=== PATIENT | male | born 1995 | race Caucasian/White ===

== ENCOUNTER 2016-09-24 16:20 | Emergency (ER) | payer OTHER ==
[~2016-09-24] VITALS: Ht 188 cm; Wt 100.9 kg
[2016-09-24 16:27] VITALS: BP 122/82; PULSE 91; RESP 15; O2SAT 98
[2016-09-24] MEDS ORDERED: 0.9% Sodium Chloride 1,000 ML IV ONE (17:10)
--- NOTE | 2016-09-24 17:10 | ED.REPORT ---
HPI-Abd Pain M Under 39 Date of Service Sep 24, 2016 ED Provider: Garland Watts PA-C [place] is an otherwise healthy 21-year-old male presenting with chief complaint of nausea vomiting and diarrhea since this night. Associated with headache which is located behind his eyes at the site of his head, crampy abdominal pain. Denies urinary urinary symptoms including hematuria, dysuria, penile discharge. Denies melena, hematochezia, hematemesis. Denies history of unusual food, travel. He has been taking penicillin intermittently for tooth infection. He is concerned about "raw spots" on the tip of his penis. I treated this patient's girlfriend in this department several days ago empirically for gonorrhea/chlamydia. She is present with him, gives consent to discuss this. Results have not returned. Nursing Notes Stated Complaint: NAUSEA, VOMITING, DIZZINESS, DIARRHEA Chief Complaint: General Complaint Nursing Notes Reviewed: Yes Allergies: Coded Allergies: No Known Allergies (Unverified , 09/24/16) Scheduled Ondansetron ODT (Ondansetron ODT) 8 Mg Tab.rapdis 8 MG PO TID General Time Seen by MD: 16:52 Chief Complaint Abdominal pain Past Medical History Past Medical History Denies Review of Systems Review of Systems Note: Negative unless stated otherwise in history of present illness Physical Exam General: Well appearing, well developed, well nourished, no acute distress. Head: Atraumatic, normocephalic. Eyes: No scleral icterus or injection. No discharge. Vision grossly intact. ENT: Voice clear, hearing grossly intact. Respiratory: Regular rate and rhythm. Breath sounds present, clear to auscultation and equal bilaterally. No respiratory distress. No increased work of breathing, speaks in complete sentences. Cardiovascular: Regular rate and rhythm, without murmur, gallop or rub. No pedal edema. Gastrointestinal: Abdomen flat and non-tender without guarding or rebound. Bowel sounds normoactive. Skin: Warm and dry. Genitourinary: Normal circumcised male penis, without lesions noted. Slight redness just proximal to the glans. Negative penile discharge. Testicles descended bilaterally, nontender without masses. Negative hernia. Neurological: Grossly nonfocal. Psychological: Alert and oriented. Speech appropriate, linear and logical. Behavior appropriate. Initial Vital Signs Vital Signs (First) Date Time Temp Pulse Resp B/P Pulse Ox O2 Delivery O2 Flow Rate FiO2 09/24/16 16:27 36.2 91 15 122/82 98 Room Air Initial VS: Vital signs normal Interpretation & Diagnostics Lab Results Interpretation Result Diagram: 09/24/16 1745 09/24/16 1745 Test 09/24/16 17:45 White Blood Count 7.4th/mm3 (3.8-10.1) Red Blood Count 5.35mil/mm3 (4.40-5.80) Hemoglobin 15.1g/dL (13.8-17.2) Hematocrit 43.3% (41.0-50.0) Mean Corpuscular Volume 80.9fL (81-100) Mean Corpuscular Hemoglobin 28.2pg (27.0-35.0) Mean Corpuscular Hemoglobin Concent 34.9% (32.0-37.0) Red Cell Distribution Width 13.2% (12.3-15.4) Platelet Count 206bil/L (150-400) Neutrophils (%) (Auto) 66.8% (40-74) Lymphocytes (%) (Auto) 23.2% (14-46) Monocytes (%) (Auto) 8.1% (4-12) Eosinophils (%) (Auto) 1.5% (0-5) Basophils (%) (Auto) 0.3% (0-3) Urine Color Yellow (YELLOW) Urine Appearance Clear (CLEAR,HAZY) Urine pH 6.5 (5.0-8.0) Urine Specific [place] 1.025 (1.003-1.035) Urine Protein Negativemg/dL (NEG,TRACE) Urine Glucose (UA) Negativemg/dL (NEGATIVE) Urine Ketones Negativemg/dL (NEGATIVE) Urine Occult Blood Negative (NEGATIVE) Urine Nitrite Negative (NEGATIVE) Urine Bilirubin Negative (NEGATIVE) Urine Urobilinogen 1.0mg/dL (NORMAL) Urine Leukocyte Esterase Negative (NEGATIVE) Urine RBC 0-2/hpf (0-2) Urine WBC 0-5/hpf (0-5) Urine Epithelial Cells Few/hpf (NONE-MOD) Urine Crystals None seen (NONE SEEN) Urine Bacteria Few/hpf (NONE-FEW) Urine Hyaline Casts None/lpf (NONE) Urine Granular Casts None seen (NONE SEEN) Urine Waxy Casts None seen (NONE SEEN) Urine Red Blood Cell Casts None seen (NONE SEEN) Urine White Blood Cell Casts None seen (NONE SEEN) Urine Mucus None seen (None Seen) Urine Trichomonas None seen (NONE SEEN) Urine Yeast None (NONE SEEN) Urinalysis Comment None Urine Culture Reflexed Not indicated Sodium Level 138mEq/L (134-144) Potassium Level 4.2mEq/L (3.5-5.2) Chloride Level 103mEq/L (97-108) Carbon Dioxide Level 23mmol/L (18-29) Blood Urea Nitrogen 14mg/dL (6-20) Creatinine 0.74mg/dL (0.76-1.27) Estimat Glomerular Filtration Rate 141mL/min (>59) Glucose Level 93mg/dL (60-99) Calcium Level 9.0mg/dL (8.5-10.1) Total Bilirubin 0.4mg/dL (0.0-1.2) Aspartate Amino Transf (AST/SGOT) 18U/L (0-50) Alanine Aminotransferase (ALT/SGPT) 31U/L (0-44) Alkaline Phosphatase 78U/L (25-150) Total Protein 7.0g/dL (6.4-8.4) Albumin 4.3g/dL (3.4-5.0) Chlamydia trachomatis DNA (MARIE) Negative (Negative) Neisseria gonorrhoeae DNA (MARIE) Negative (Negative) Re-Eval/Medical Decision Med Decision/Clinical Course I discussed this case with Dr. Stewart. Otherwise healthy 19-year-old male presents with chief complaint nausea, vomiting, diarrhea since last night associated with headache. Denies fever, melena, hematochezia, hematemesis, travel, unusual food. Admit intermittent penicillin use for tooth infection. Also concerned about STI, his girlfriend treated by me in this department several days ago empirically for GC chlamydia. Test results are not returned. Denies urinary symptoms such as hematuria, dysuria, discharge. Concerned about "raw spots" on the tip of his penis. Physical examination reveals a generally well appearing patient, nontender abdomen. Genitourinary exam is normal with slight redness just proximal to the glans. Negative tenderness or discharge. I believe this is most likely a straightforward gastroenteritis. Plan to start IV, 1 NS, ondansetron. Check CBC, CMP. Considered appendicitis, inflammatory or bacterial colitis, C. difficile, obstruction. Also considering the possibility of GC/Chlamydia which would appear to be asymptomatic as there is no discharge or evidence of epididymitis. Areas of irritation noted on penis are unremarkable, with slight redness and crusting. I see no vesicles which I might test for herpes, no ulcers to suggest syphilis. I discussed the case with Dr. Stewart who met with and examine the patient. He is similarly reassured. Treat empirically for GC chlamydia with azithromycin and ceftriaxone, send urine NAAT. CBC, CMP are unremarkable. Patient responds well to hydration and antiemetics. Passes His by mouth challenge, feels improved and wishes to go home. Provided primary care referral, advised regarding strict emergency return precautions. The patient verbalizes understanding of and consented to plan. Patient Discharge & Departure Primary Impression: Viral gastroenteritis Disposition: Home Discharge Condition All VS Reviewed: Yes Condition: Stable Patient Instructions: Gastroenteritis (ED) Additional Instructions: Evaluation in the emergency department for nausea vomiting and diarrhea includes history, physical examination and lab tests all of which are reassuring that this is unlikely to be caused by an immediately dangerous condition. I think this most likely is a viral gastroenteritis, which should improve on its own in the next few days. I believe you are stable and safe to go home. I will send you home with a prescription for ondansetron (Zofran) to help with the nausea. They hydrated by drinking small amounts of fluid throughout the day. Eat small amounts of bland food as tolerated. (Banana, rice, applesauce and toast are all excellent choices) We have also discussed the possibility of a sexually transmitted infection such as gonorrhea or chlamydia. We are testing for this but we have also gone ahead and treated you with antibiotics. One week from now, you can assume that the infection is gone. Do not have unprotected sex before then. I have given her a referral for primary care provider. Please contact them to establish care if you have any further concerns. Return to the emergency department for any new or worsening symptoms including blood in your stool, increasing pain or fever Referrals: [facility] Provider for APC: Robert Stewart MD Attending Statement I saw the patient with the PA and agree with their evaluation and plan as noted above. Reassuring abdominal examination. Will treat empirically for STI as per above. Garland Watts PA-C Sep 24, 2016 17:10 Robert Stewart MD Sep 25, 2016 23:53
[2016-09-24] MEDS ORDERED: cefTRIAXone Inj 250 MG, Lidocaine PF 1% Inj 0.9 ML in Syringe 1 EACH IM ONE (17:15)
[2016-09-24] MEDS ORDERED: Ondansetron 2 mg/mL 2 mL Inj IVPUSH ONE (17:30)
[2016-09-24] MEDS ORDERED: CEFTRIAXONE IV ONE ×2 (17:30→18:10)
[2016-09-24] MEDS ORDERED: DEXTROSE 5% IV ONE ×2 (17:30→18:10)
[2016-09-24 18:00] LABS: BASOPHILS % (AUTO) 0.3 % (0-3); EOSINOPHILS % (AUTO) 1.5 % (0-5); MONOCYTES % (AUTO) 8.1 % (4-12); Mean Corpuscular Hemoglobin 28.2 pg (27.0-35.0); Mean Corpuscular Volume 80.9 fL (81-100); NEUTROPHILS % (AUTO) 66.8 % (40-74); Platelet Count 206 bil/L (150-400)
[2016-09-24 18:10] LABS: APPEARANCE,URINE CLEAR (CLEAR,HAZY); COLOR,URINE YELLOW (YELLOW); OCCULT BLOOD,URINE NEGATIVE (NEGATIVE); PH,URINE 6.5 (5.0-8.0)
[2016-09-24 18:25] VITALS: BP 147/75; PULSE 75; O2SAT 100
[2016-09-24] MEDS ORDERED: ONDA8TAB10 PO (19:35)
[2016-09-24 20:03] VITALS: BP 135/67; PULSE 79; RESP 16; O2SAT 95
== END 2016-09-24 20:05 | disposition home or self-care (01) ==
LOC: SED 16:20
DX: A08.4 Viral intestinal infection, unspecified (principal); N48.89 Other specified disorders of penis
CPT/HCPCS: 36415; 80053; 81000; 85025; 87491; 87591; 96361; 96365; 96375; 99285; J0696; J2405; J7030